=== PATIENT | male | born 1975 | race American Indian/Alaskan Native ===

== ENCOUNTER 2021-04-05 14:37 | Emergency (ER) | payer OTHER ==
[2021-04-05 15:09] VITALS: BP 159/108
--- NOTE | 2021-04-05 17:53 | Emergency Department Report ---
ED Head Trauma HPI - General Chief complaint: Head Injury Stated complaint: WORK INJURY FACE Time Seen by Provider: 04/05/21 17:35 Source: patient Mode of arrival: Ambulatory Limitations: No Limitations - History of Present Illness Initial comments: 45-year-old male was sent to the ER by his job for evaluation after head and facial injury. Patient states that around 1:00 PM while she was working at [employer] he had cut some straps that was holding up some boards and after cutting the straps the plywood boards fell onto his head and face. He states about 15 boards fell on top of him. He did not fall to the ground. He states that he felt dazed for a few seconds but denies any LOC. He complains mainly of headache and facial pain. He reports no bruising or open wounds to his face or any nosebleeds. He is not any blood thinners. He denies any significant past history. MD Complaint: head injury, other (facial injury ) -: This afternoon (about 1pm ) - Related Data Allergies/Adverse reactions: Allergies Allergy/AdvReac Type Severity Reaction Status Date / Time No Known Allergies Allergy Unverified 04/05/21 15:05 ED Review of Systems ROS: Stated complaint: WORK INJURY FACE Other details as noted in HPI Comment: All other systems reviewed and negative Constitutional: denies: chills, fever Eyes: other (Facial pain). denies: eye pain, eye discharge, vision change ENT: denies: ear pain, throat pain, dental pain, hearing loss, epistaxis, congestion Respiratory: denies: cough, shortness of breath, SOB with exertion, SOB at rest, wheezing Cardiovascular: denies: chest pain, palpitations, dyspnea on exertion, edema, syncope, paroxysmal nocturnal dyspnea Endocrine: no symptoms reported Gastrointestinal: denies: abdominal pain, nausea, vomiting, diarrhea, constipation, hematemesis, hematochezia Neurological: headache Psychiatric: denies: anxiety, depression Hematological/Lymphatic: denies: easy bleeding, easy bruising ED Past Medical Hx - Past Medical History Previous Medical History?: Yes Hx Asthma: Yes - Surgical History Past Surgical History?: No ED Physical Exam - General Limitations: No Limitations General appearance: alert, in no apparent distress - Head Head exam: Present: atraumatic, normocephalic, normal inspection - Eye Eye exam: Present: normal appearance, PERRL, EOMI Pupils: Present: normal accommodation - ENT ENT exam: Present: normal exam, normal orophraynx, mucous membranes moist, TM's normal bilaterally, normal external ear exam - Neck Neck exam: Present: normal inspection, full ROM. Absent: tenderness - Respiratory Respiratory exam: Present: normal lung sounds bilaterally. Absent: respiratory distress, wheezes, rales, rhonchi - Cardiovascular Cardiovascular Exam: Present: regular rate, normal rhythm, normal heart sounds - GI/Abdominal GI/Abdominal exam: Present: soft. Absent: distended, tenderness, guarding, rebound - Neurological Exam Neurological exam: Present: alert, oriented X3, CN II-XII intact, normal gait - Psychiatric Psychiatric exam: Present: normal affect, normal mood - Skin Skin exam: Present: intact ED Course Vital Signs 04/05/21 15:06 Temperature 98.1 F Pulse Rate 61 Respiratory 14 Rate Blood Pressure 159/108 O2 Sat by Pulse 99 Oximetry - Lab Data Lab Results 04/05/21 Range/Units Unknown Urine Opiates Screen Negative Urine Methadone Screen Negative Ur Barbiturates Screen Negative Ur Phencyclidine Scrn Negative Ur Amphetamines Screen Negative U Benzodiazepines Scrn Negative Urine Cocaine Screen Negative U Marijuana (THC) Screen Negative Drugs of Abuse Note Disclamer - Radiology Data Radiology results: report reviewed Patient: NADEGE FAIRBANKS MR#: [id number] 92 : 1975 Acct:[id number] Age/Sex: 45 / M ADM Date: 04/05/21 Loc: ED Attending Dr: Ordering Physician: FAMILIA THOMSON Date of Service: 04/05/21 Procedure(s): CT facial bones wo con Accession Number(s): [id number] cc: FAMILIA THOMSON CT MAXILLOFACIAL WITHOUT CONTRAST INDICATION / CLINICAL INFORMATION: head injury/15 lindsey fell on head. TECHNIQUE: All CT scans at this location are performed using CT dose reduction for ALARA by means of automated exposure control. COMPARISON: None available. FINDINGS: FACIAL BONES: There is no clear CT evidence of acute fracture involving the facial bones. The orbital cr, zygomatic arches and paranasal sinuses appear intact. PARANASAL SINUSES: There is mild mucosal thickening involving the ethmoid, maxillary and right sphenoid sinuses. Additionally, the findings are compatible with a 1.5 cm retention cyst along the posterior left maxillary sinus. There is a small air-fluid level along the posterior right maxillary. ORBITS: The optic globes appear to demonstrate appropriate size and configuration. No significant post septal inflammatory changes are identified. VISUALIZED INTRACRANIAL STRUCTURES: No significant abnormality. ADDITIONAL FINDINGS: There is no definite extensive calcification involving the stylohyoid ligaments bilaterally. IMPRESSION: 1. There is no CT evidence of acute fracture involving the facial bones. Signer Name: Malick Clark MD Signed: 04/05/2021 8:58 PM Workstation Name: [id number] Transcribed By: MR Dictated By: Malick Clark MD Electronically Authenticated By: Malick Clark MD Signed Date/Time: 04/05/212057 DD/ 52 TD/TT: Patient: NADEGE FAIRBANKS MR#: [id number] 92 : 1975 Acct:[id number] Age/Sex: 45 / M ADM Date: 04/05/21 Loc: ED Attending Dr: Ordering Physician: FAMILIA THOMSON Date of Service: 04/05/21 Procedure(s): CT head/brain wo con Accession Number(s): [id number] cc: FAMILIA THOMSON CT head/brain wo con INDICATION / CLINICAL INFORMATION: 45 years Male; head injury/15 plywood fell on head. TECHNIQUE: Routine CT head without contrast. All CT scans at this location are performed using CT dose reduction for ALARA by means of automated exposure control. COMPARISON: None. FINDINGS: BRAIN / INTRACRANIAL CONTENTS: The brain appears to demonstrate appropriate attenuation. The jugular system is within normal limits in size and configuration. There is no clear CT evidence of acute intracoronal hemorrhage or significant mass effect. ORBITS: No significant abnormality of visualized orbits. SINUSES / MASTOIDS: There is mild mucosal thickening involving ethmoid, right sphenoid and maxillary sinuses. Additionally, there is a retention cyst along the visualized posterior left maxillary sinus. CRANIOCERVICAL JUNCTION: No significant abnormality. ADDITIONAL FINDINGS: The calvarium appears intact. IMPRESSION: 1. There is no CT evidence of acute intracranial process. Signer Name: Malick Clark MD Signed: 04/05/2021 8:53 PM Workstation Name: [id number] Transcribed By: MR Dictated By: Malick Clark MD Electronically Authenticated By: Malick Clark MD Signed Date/Time: 04/05/212052 DD/ 49 TD/TT: - Medical Decision Making The patient presented with a complaint of a facial/head injury. Patient is resting comfortably and he is alert and in no distress. The patient has a normal mental status, has a GCS of 15, and is neurologically intact with a normal gait in the ER. The history, exam, diagnostic testing and current condition does not demonstrate signs of basilar skull fracture, clinically significant intracranial injury or cervical trauma or any other emergent conditions warranting additional testing, or transfer at this time. Discussed imaging results with patient. Patient wanting to have clearance to return to work. Patient states that he is wanting to go back to work tomorrow and therefore cleared him to return to work tomorrow. The patient condition is stable and appropriate for discharge. The patient will pursue further outpatient evaluation with the primary care physician or other designated. Critical care attestation.: If time is entered above; I have spent that time in minutes in the direct care of this critically ill patient, excluding procedure time. ED Disposition Clinical Impression: Head contusion, Contusion of face Disposition: DC-01 TO HOME OR SELFCARE Is pt being admited?: No Does the pt Need Aspirin: No Condition: Stable Instructions: Facial or Scalp Contusion, [id number] Additional Instructions: You can take Tylenol and ibuprofen as needed for any pain. Recommend that you follow-up with your Worker's Comp for further treatment and evaluation or you can follow-up with the primary care doctor listed on your discharge instructions. Return to the ER if your symptoms changes or worsens in any way. Referrals: NATALIE MARTIN MD [Staff Physician] - 3-5 Days Forms: Work/School Release Form(ED) Time of Disposition: 21:16
[2021-04-05 19:21] LABS: Amphetamine Screen,Urine Negative; Benzodiazepines Screen,Urine Negative; Cannabinoid Screen,Urine Negative; Cocaine Screen,Urine Negative; Methadone Screen,Urine Negative; Opiate Screen,Urine Negative
--- NOTE | 2021-04-05 20:58 | Cat Scan Report ---
CT head/brain wo con INDICATION / CLINICAL INFORMATION: 45 years Male; head injury/15 plywood fell on head. TECHNIQUE: Routine CT head without contrast. All CT scans at this location are performed using CT dos e reduction for ALARA by means of automated exposure control. COMPARISON: None. FINDINGS: BRAIN / INTRACRANIAL CONTENTS: The brain appears to demonstrate appropriate attenuation. The jugular system is within normal limits in size and configuration. There is no clear CT evidence of acute intr acoronal hemorrhage or significant mass effect. ORBITS: No significant abnormality of visualized orbits. SINUSES / MASTOIDS: There is mild mucosal thickening involving ethmoid, right sphenoid and maxillary sinuses. Additionally, there is a retention cyst along the visualized posterior left maxillary sinus. CRANIOCERVICAL JUNCTION: No significant abnormality. ADDITIONAL FINDINGS: The calvarium appears intact. IMPRESSION: 1. There is no CT evidence of acute intracranial process. Signer Name: Malick Clark MD Signed: 04/05/2021 8:53 PM Workstation Name: [id number]
--- NOTE | 2021-04-05 21:02 | Cat Scan Report ---
CT MAXILLOFACIAL WITHOUT CONTRAST INDICATION / CLINICAL INFORMATION: head injury/15 lindsey fell on head. TECHNIQUE: All CT scans at this location are performed using CT dose reduction for ALARA by means of automated e xposure control. COMPARISON: None available. FINDINGS: FACIAL BONES: There is no clear CT evidence of acute fracture involving the facial bones. The orbital cr, zygomatic arches and paranasal sinuses appear intact. PARANASAL SINUSES: There is mild mucosal thickening involving the ethmoid, maxillary and right spheno id sinuses. Additionally, the findings are compatible with a 1.5 cm retention cyst along the posterio r left maxillary sinus. There is a small air-fluid level along the posterior right maxillary. ORBITS: The optic globes appear to demonstrate appropriate size and configuration. No significant pos t septal inflammatory changes are identified. VISUALIZED INTRACRANIAL STRUCTURES: No significant abnormality. ADDITIONAL FINDINGS: There is no definite extensive calcification involving the stylohyoid ligaments bilaterally. IMPRESSION: 1. There is no CT evidence of acute fracture involving the facial bones. Signer Name: Malick Clark MD Signed: 04/05/2021 8:58 PM Workstation Name: [id number]
== END 2021-04-05 21:30 | disposition home or self-care (01) ==
LOC: ED 14:37
DX: S00.93XA Contusion of unspecified part of head, initial encounter (principal); S00.83XA Contusion of other part of head, initial encounter; X58.XXXA Exposure to other specified factors, initial encounter; Y93.89 Activity, other specified; Y92.89 Other specified places as the place of occurrence of the external cause; Y99.8 Other external cause status
CPT/HCPCS: 70450; 70486; 80307